=== PATIENT | male | born 1985 | race Caucasian/White ===

== ENCOUNTER 2016-10-16 10:41 | Emergency (ER) | payer MEDICARE, MEDICAID ==
[~2016-10-16 10:41] MED LIST: ALBUTEROL I0.5 ML/EA AERO NEB; ALBUTEROL INHALER; AZITHROMYCIN500 MG PO; BACTRIM 400-801 EAC1 PO; CALCITRATE CAPL1 TAB PO; CARAFATE1 G PO; CAYSTON75 MG/1 ML IH; CEFTIN250 MG PO; COLACE100 M1 PO; COLISTIMETHATE150 MG IV; DEXAMETHASONE2 MG PO; DILTIAZEM 24HR120 M4 PO; FLONASE16 G1; FLONASE16 G2 INH; FLONASE16 GM NS; HI-CAL500 MG PO; IRON325 MG PO; MAGNESIUM400 M1 PO; MAGNESIUM400 M2; MEPHYTON5 MG PO; MEROPENEM IV; MEROPENEM1 GM IV; MERREM IV; MIRALAX17 G1 PO; MIRALAX17 G2 PO; MIRALAX17 GM PO; MUCINEX600 MG PO; MULTIVITAMINS1 EAC6 PO; MYCOPHENOLIC A180 MG PO; NORCO 5/3251 TAB PO; NOVOLIN 70100 UNITS/ SC; NYSTATIN100000 UNI PO; OMEPRAZOLE20 M2 PO; OMNITROPE PO; PANCRELIPASE PO; POTASSIUM20 MEQ/15 PO; PREDNISONE5 M1 PO; PROGRAF PO; PROPRANOLOL HCL20 M1 PO; PROTONIX40 M2 PO; PULMOZYME1 MG/ML AERO NEB; REGLAN10 MG PO; SENNA S TABLET1 TAB PO; SENOKOT8.6 M1 PO; SPIRIVA18 MCG IH; SPORANOX100 M1 PO; SYMBICORT; URSODIOL250 MG PO; URSODIOL300 MG PO; VALCYTE450 MG/TAB PO; VITAMIN A PO; VITAMIN A10000 UNIT PO; VITAMIN D-50000 IU/C PO; VITAMIN D10000 UNIT PO; VITAMIN D31000 UNIT PO; VITAMIN D350000 UNI1 PO; VITAMIN E200 UNIT PO; VITAMIN E400 UNIT PO; VITAMIN K PO; ZANTAC150 MG PO; ZITHROMAX250MG Z-PAK PO; [UNRECOGNIZED DRUG - CODE]; [UNRECOGNIZED DRUG - OTHER] IV; [UNRECOGNIZED DRUG - OTHER] NEB; [UNRECOGNIZED DRUG - OTHER] PO
[2016-10-16 12:35] LABS: BASO % 0.4 % (0-2); EOS % 0.4 % (0-7); HCT-HEMATOCRIT 38.2 % (36.0-53.5); HGB-HEMOGLOBIN 13.7 gm/dl (13.5-17.0); IMMATURE GRANULOCYTES ABSOLUTE 0.01 tho/cmm (0-0.03); IMMATURE GRANULOCYTES PERCENT 0.2 % (0-0.3); LYMPH % 19.8 % (20-45); MCH (MEAN CORPUSCULAR HGB) 29.8 pg (28.0-32.0); MCHC MEAN CORPUSCULAR HGB CONC 35.9 % (32.0-36.0); MEAN PLATELET VOLUME 8.8 cmc (9.4-12.4); MONO % 6.8 % (0-12); MONOCYTE ABSOLUTE COUNT 0.4 tho/cmm (0.0-1.2); NEUTROPHIL ABSOLUTE COUNT 3.7 tho/cmm (1.6-8.0); NEUTROPHIL-AUTOMATED 3.7 tho/cmm (1.6-8.0); NEUTROPHILS % 72.4 % (40-80); RED CELL DISTRIBUTION WIDTH 13.3 % (12.4-16.4); WHITE BLOOD COUNT 5.1 tho/cmm (4.0-10.0)
[2016-10-16 13:00] LABS: ALB/GLOB RATIO 0.8 (0.8-2.0); ALBUMIN 2.7 g/dl (3.5-5.0); ALKALINE PHOSPHATASE 209 U/L (33-138); ANION GAP 15 mmol/L (0-20); BILIRUBIN,TOTAL 2.5 mg/dl (0.0-1.5); BLOOD UREA NITROGEN 12 mg/dl (6-24); C-REACTIVE PROTEIN 3.8 mg/dl (0-0.9); CALCIUM 8.1 mg/dl (8.5-10.5); CARBON DIOXIDE-VENOUS 25 mmol/L (22-32); CHLORIDE 100 mmol/l (96-110); CREATININE 1.45 mg/dl (0.60-1.30); LIPASE 40 U/L (73-393); SODIUM 136 mmol/L (135-145); eGFR VALUE FOR BLACK 73 mL/Min
[2016-10-16 13:01] LABS: GLUCOSE 69 mg/dL (70-110); POTASSIUM 3.9 mmol/L (3.7-5.1)
[2016-10-16 13:10] LABS: ALT/SGPT 1216 U/L (12-78); AST/SGOT 5209 U/L (10-40)
[2016-10-16 13:11] LABS: PLATELET COUNT 45 tho/cmm (150-450)
[2016-10-16] MEDS ORDERED: ZORTRESS PO (13:33)
[2016-10-16] MEDS ORDERED: PROGRAF1 M1 PO ×2 (13:34→13:35)
[2016-10-16] MEDS ORDERED: PREDNISONE5 M1 PO (13:35)
[2016-10-16] MEDS ORDERED: VITAMIN E400 UNI4 PO (13:35)
[2016-10-16] MEDS ORDERED: PROTONIX40 M2 PO (13:36)
[2016-10-16] MEDS ORDERED: MAGNESIUM OXID400 M1 PO (13:36)
[2016-10-16] MEDS ORDERED: VITAMIN A10000 UNI2 PO (13:36)
[2016-10-16] MEDS ORDERED: LABETALOL HCL100 M1 PO (13:37)
[2016-10-16] MEDS ORDERED: VITAMIN D250000 UNI1 PO (13:50)
[2016-10-16] MEDS ORDERED: ASPIR-LOW81 M1 PO (13:59)
[2016-10-16] MEDS ORDERED: NYSTATIN100000 UNI SSW (14:00)
[2016-10-16] MEDS ORDERED: NOVOLIN 70100 UNITS/ SC (14:01)
[2016-10-16] MEDS ORDERED: CREON PO ×2 (14:14→14:15)
[2016-10-16 15:04] LABS: URINE BILIRUBIN SMALL (NEG); URINE BLOOD LARGE (NEG); URINE GLUCOSE (UA) NEGATIVE (NEG); URINE KETONE MODERATE (NEG); URINE LEUKOCYTE ESTERASE POSITIVE (NEG); URINE NITRITE NEGATIVE (NEG); URINE PROTEIN MODERATE (NEG); URINE SPECIFIC GRAVITY 1.015 (1.003-1.030)
[2016-10-16 15:06] LABS: URINE APPEARANCE HAZY; URINE COLOR AMBER
[2016-10-16 15:13] LABS: URINE AMORPHOUS 1+; URINE EPITHELIAL CELLS 0-1 /[HPF] (0-10); URINE MUCUS 1+
[2016-10-16 16:25] LABS: INR 1.9 INR (0.9-1.1); PROTHROMBIN TIME 22.6 SECONDS (9.0-13.6)
== END 2016-10-16 18:26 | disposition other institution (70) ==
LOC: EDMED 10:41
PROVIDERS: Emergency Medicine
DX: E86.0 Dehydration (principal); R11.10 Vomiting, unspecified; E84.9 Cystic fibrosis, unspecified; R79.89 Other specified abnormal findings of blood chemistry; K21.9 Gastro-esophageal reflux disease without esophagitis; Z94.2 Lung transplant status; Z94.4 Liver transplant status; E11.9 Type 2 diabetes mellitus without complications; Z79.4 Long term (current) use of insulin; Z79.899 Other long term (current) drug therapy
CPT/HCPCS: C9113; J2405; J2765; J7030

== ENCOUNTER 2016-11-12 18:55 | Inpatient (IN) | payer MEDICARE, MEDICAID ==
[~2016-11-12 18:55] MED LIST changes: +ASPIR-LOW81 M1 PO; +CREON PO; +LABETALOL HCL100 M1 PO; +MAGNESIUM OXID400 M1 PO; +NYSTATIN100000 UNI SSW; +PROGRAF1 M1 PO; +VITAMIN A10000 UNI2 PO; +VITAMIN D250000 UNI1 PO; +VITAMIN E400 UNI4 PO; +ZORTRESS PO
[2016-11-12 20:48] LABS: BASO % 0.5 % (0-2); EOS % 1.3 % (0-7); EOSINOPHIL ABSOLUTE COUNT 0.1 tho/cmm (0.0-0.7); HCT-HEMATOCRIT 34.9 % (36.0-53.5); HGB-HEMOGLOBIN 12.2 gm/dl (13.5-17.0); MCH (MEAN CORPUSCULAR HGB) 29.3 pg (28.0-32.0); MCV (MEAN CELL VOLUME) 83.7 fl (82.0-96.0); MEAN PLATELET VOLUME 8.1 cmc (9.4-12.4); MONO % 11.7 % (0-12); MONOCYTE ABSOLUTE COUNT 0.7 tho/cmm (0.0-1.2); NEUTROPHIL ABSOLUTE COUNT 3.8 tho/cmm (1.6-8.0); NEUTROPHIL-AUTOMATED 3.8 tho/cmm (1.6-8.0); NEUTROPHILS % 68.5 % (40-80); RED BLOOD COUNT 4.17 mil/cmm (4.40-5.70); RED CELL DISTRIBUTION WIDTH 13.3 % (12.4-16.4); WHITE BLOOD COUNT 5.6 tho/cmm (4.0-10.0)
[2016-11-12 20:51] LABS: PLATELET COUNT 47 tho/cmm (150-450)
[2016-11-12 21:09] LABS: ALB/GLOB RATIO 0.9 (0.8-2.0); ALBUMIN 2.7 g/dl (3.5-5.0); ALKALINE PHOSPHATASE 253 U/L (33-138); ALT/SGPT 43 U/L (12-78); ANION GAP 14 mmol/L (0-20); AST/SGOT 52 U/L (10-40); BILIRUBIN,DIRECT 0.5 mg/dl (0.0-0.3); BILIRUBIN,INDIRECT 0.8 mg/dL (0.0-1.0); BILIRUBIN,TOTAL 1.3 mg/dl (0.0-1.5); BLOOD UREA NITROGEN 2 mg/dl (6-24); CALCIUM 7.5 mg/dl (8.5-10.5); CARBON DIOXIDE-VENOUS 26 mmol/L (22-32); CHLORIDE 101 mmol/l (96-110); CREATININE 0.91 mg/dl (0.60-1.30); GLUCOSE 76 mg/dL (70-110); LIPASE 29 U/L (73-393); POTASSIUM 3.4 mmol/L (3.7-5.1); SODIUM 138 mmol/L (135-145); eGFR VALUE FOR BLACK >90 mL/Min
[2016-11-12 21:14] LABS: URINE BILIRUBIN NEGATIVE (NEG); URINE BLOOD NEGATIVE (NEG); URINE GLUCOSE (UA) NEGATIVE (NEG); URINE KETONE SMALL (NEG); URINE LEUKOCYTE ESTERASE POSITIVE (NEG); URINE NITRITE NEGATIVE (NEG); URINE PROTEIN SMALL (NEG); URINE SPECIFIC GRAVITY 1.005 (1.003-1.030)
[2016-11-12 21:17] LABS: URINE APPEARANCE HAZY; URINE COLOR YELLOW
[2016-11-12 21:23] LABS: URINE AMORPHOUS 1+; URINE RBC RARE /[HPF] (0-5); URINE WBC 0 /[HPF] (0-5)
[2016-11-12] MEDS ORDERED: ZOFRAN ODT4 MG PO (22:28)
[2016-11-13 05:25] LABS: BASO % 0.6 % (0-2); EOS % 1.5 % (0-7); EOSINOPHIL ABSOLUTE COUNT 0.1 tho/cmm (0.0-0.7); HCT-HEMATOCRIT 31.3 % (36.0-53.5); HGB-HEMOGLOBIN 10.6 gm/dl (13.5-17.0); LYMPH % 26.1 % (20-45); LYMPH ABSOLUTE COUNT 0.9 tho/cmm (0.8-4.5); MCH (MEAN CORPUSCULAR HGB) 28.8 pg (28.0-32.0); MCHC MEAN CORPUSCULAR HGB CONC 33.9 % (32.0-36.0); MCV (MEAN CELL VOLUME) 85.1 fl (82.0-96.0); MEAN PLATELET VOLUME 8.6 cmc (9.4-12.4); MONO % 13.9 % (0-12); MONOCYTE ABSOLUTE COUNT 0.5 tho/cmm (0.0-1.2); NEUTROPHILS % 57.9 % (40-80); RED BLOOD COUNT 3.68 mil/cmm (4.40-5.70); RED CELL DISTRIBUTION WIDTH 13.6 % (12.4-16.4); WHITE BLOOD COUNT 3.4 tho/cmm (4.0-10.0)
[2016-11-13 05:33] LABS: PLATELET COUNT 40 tho/cmm (150-450)
[2016-11-13 05:39] LABS: ANION GAP 12 mmol/L (0-20); BLOOD UREA NITROGEN 2 mg/dl (6-24); CALCIUM 6.8 mg/dl (8.5-10.5); CARBON DIOXIDE-VENOUS 24 mmol/L (22-32); CHLORIDE 105 mmol/l (96-110); CREATININE 0.92 mg/dl (0.60-1.30); POTASSIUM 3.2 mmol/L (3.7-5.1); SODIUM 138 mmol/L (135-145); eGFR VALUE FOR BLACK >90 mL/Min
[2016-11-13 05:44] LABS: GLUCOSE 68 mg/dL (70-110)
--- NOTE | 2016-11-13 16:02 | NUR ---
DR MATHIAS NOTIFIED OF CONTINUED NAUSEA AND HYPOGLYCEMIA, ORDERS RECIEVED
[2016-11-14 04:38] LABS: BASO % 0.4 % (0-2); EOS % 0.4 % (0-7); HCT-HEMATOCRIT 32.4 % (36.0-53.5); HGB-HEMOGLOBIN 11.1 gm/dl (13.5-17.0); LYMPH % 31.9 % (20-45); LYMPH ABSOLUTE COUNT 0.8 tho/cmm (0.8-4.5); MCHC MEAN CORPUSCULAR HGB CONC 34.3 % (32.0-36.0); MCV (MEAN CELL VOLUME) 84.6 fl (82.0-96.0); MEAN PLATELET VOLUME 8.6 cmc (9.4-12.4); MONO % 9.1 % (0-12); MONOCYTE ABSOLUTE COUNT 0.2 tho/cmm (0.0-1.2); NEUTROPHIL ABSOLUTE COUNT 1.5 tho/cmm (1.6-8.0); NEUTROPHIL-AUTOMATED 1.5 tho/cmm (1.6-8.0); NEUTROPHILS % 58.2 % (40-80); RED BLOOD COUNT 3.83 mil/cmm (4.40-5.70); RED CELL DISTRIBUTION WIDTH 13.4 % (12.4-16.4); WHITE BLOOD COUNT 2.6 tho/cmm (4.0-10.0)
[2016-11-14 04:59] LABS: ALB/GLOB RATIO 0.8 (0.8-2.0); ALBUMIN 2.4 g/dl (3.5-5.0); ALKALINE PHOSPHATASE 197 U/L (33-138); ALT/SGPT 35 U/L (12-78); ANION GAP 12 mmol/L (0-20); AST/SGOT 45 U/L (10-40); BILIRUBIN,TOTAL 1.1 mg/dl (0.0-1.5); BLOOD UREA NITROGEN 2 mg/dl (6-24); CALCIUM 7.6 mg/dl (8.5-10.5); CARBON DIOXIDE-VENOUS 25 mmol/L (22-32); CHLORIDE 108 mmol/l (96-110); CREATININE 1.07 mg/dl (0.60-1.30); MAGNESIUM 1.6 mg/dl (1.8-2.6); POTASSIUM 3.9 mmol/L (3.7-5.1); SODIUM 141 mmol/L (135-145); eGFR VALUE FOR BLACK >90 mL/Min
[2016-11-14 05:03] LABS: GLUCOSE 150 mg/dL (70-110)
[2016-11-14 05:06] LABS: PLATELET COUNT 47 tho/cmm (150-450)
[2016-11-14] MEDS ORDERED: SENNA8.6 M2 PO (12:36)
[2016-11-14] MEDS ORDERED: COLACE100 M1 PO (12:36)
[2016-11-14] MEDS ORDERED: MIRALAX17 G2 PO (12:37)
[2016-11-15 04:23] LABS: EOS % 0.5 % (0-7); HCT-HEMATOCRIT 29.4 % (36.0-53.5); HGB-HEMOGLOBIN 10.1 gm/dl (13.5-17.0); LYMPH % 25.8 % (20-45); LYMPH ABSOLUTE COUNT 0.6 tho/cmm (0.8-4.5); MCH (MEAN CORPUSCULAR HGB) 29.1 pg (28.0-32.0); MCHC MEAN CORPUSCULAR HGB CONC 34.4 % (32.0-36.0); MCV (MEAN CELL VOLUME) 84.7 fl (82.0-96.0); MEAN PLATELET VOLUME 8.9 cmc (9.4-12.4); MONO % 6.3 % (0-12); MONOCYTE ABSOLUTE COUNT 0.1 tho/cmm (0.0-1.2); NEUTROPHIL ABSOLUTE COUNT 1.5 tho/cmm (1.6-8.0); NEUTROPHIL-AUTOMATED 1.5 tho/cmm (1.6-8.0); NEUTROPHILS % 67.4 % (40-80); RED BLOOD COUNT 3.47 mil/cmm (4.40-5.70); RED CELL DISTRIBUTION WIDTH 13.2 % (12.4-16.4); WHITE BLOOD COUNT 2.2 tho/cmm (4.0-10.0)
[2016-11-15 04:35] LABS: PLATELET COUNT 46 tho/cmm (150-450)
[2016-11-15 04:40] LABS: ALB/GLOB RATIO 0.8 (0.8-2.0); ALBUMIN 2.2 g/dl (3.5-5.0); ALKALINE PHOSPHATASE 166 U/L (33-138); ALT/SGPT 33 U/L (12-78); ANION GAP 11 mmol/L (0-20); AST/SGOT 46 U/L (10-40); BILIRUBIN,TOTAL 0.8 mg/dl (0.0-1.5); BLOOD UREA NITROGEN 5 mg/dl (6-24); CALCIUM 7.3 mg/dl (8.5-10.5); CARBON DIOXIDE-VENOUS 27 mmol/L (22-32); CHLORIDE 107 mmol/l (96-110); CREATININE 1.13 mg/dl (0.60-1.30); GLUCOSE 186 mg/dL (70-110); POTASSIUM 4.1 mmol/L (3.7-5.1); SODIUM 141 mmol/L (135-145); eGFR VALUE FOR BLACK >90 mL/Min
== END 2016-11-15 12:00 | DRG 392 ==
LOC: EDMED 18:55 → EMR2 23:34 → 5WE 11-13 00:23
PROVIDERS: Emergency Medicine; Family Medicine; Internal Medicine; ADMIT Hospitalist
DX: K52.9 Noninfective gastroenteritis and colitis, unspecified (principal); D61.818 Other pancytopenia; Z94.4 Liver transplant status; Z94.2 Lung transplant status; E44.0 Moderate protein-calorie malnutrition; K86.89 Other specified diseases of pancreas; E83.42 Hypomagnesemia; Z79.899 Other long term (current) drug therapy; Z87.898 Personal history of other specified conditions; Z79.82 Long term (current) use of aspirin; K21.9 Gastro-esophageal reflux disease without esophagitis; E86.0 Dehydration; Z88.8 Allergy status to other drugs, medicaments and biological substances; E87.6 Hypokalemia; E16.2 Hypoglycemia, unspecified; D63.8 Anemia in other chronic diseases classified elsewhere; R79.89 Other specified abnormal findings of blood chemistry; L40.9 Psoriasis, unspecified
CPT/HCPCS: J2405; J2550; J3480; J7030; J7507; J7512

== ENCOUNTER 2016-12-08 09:41 | Inpatient (IN) | payer MEDICARE, MEDICAID ==
[~2016-12-08 09:41] MED LIST changes: +SENNA8.6 M2 PO; +ZOFRAN ODT4 MG PO
[2016-12-08 11:17] LABS: BASO % 0.9 % (0-2); EOS % 2.7 % (0-7); EOSINOPHIL ABSOLUTE COUNT 0.1 tho/cmm (0.0-0.7); HGB-HEMOGLOBIN 12.2 gm/dl (13.5-17.0); IMMATURE GRANULOCYTES ABSOLUTE 0.01 tho/cmm (0-0.03); IMMATURE GRANULOCYTES PERCENT 0.3 % (0-0.3); LYMPH % 26.2 % (20-45); LYMPH ABSOLUTE COUNT 0.9 tho/cmm (0.8-4.5); MCH (MEAN CORPUSCULAR HGB) 29.2 pg (28.0-32.0); MCHC MEAN CORPUSCULAR HGB CONC 34.9 % (32.0-36.0); MCV (MEAN CELL VOLUME) 83.7 fl (82.0-96.0); MEAN PLATELET VOLUME 8.5 cmc (9.4-12.4); MONO % 11.3 % (0-12); MONOCYTE ABSOLUTE COUNT 0.4 tho/cmm (0.0-1.2); NEUTROPHIL ABSOLUTE COUNT 1.9 tho/cmm (1.6-8.0); NEUTROPHIL-AUTOMATED 1.9 tho/cmm (1.6-8.0); NEUTROPHILS % 58.6 % (40-80); RED BLOOD COUNT 4.18 mil/cmm (4.40-5.70); RED CELL DISTRIBUTION WIDTH 13.3 % (12.4-16.4); WHITE BLOOD COUNT 3.3 tho/cmm (4.0-10.0)
[2016-12-08 11:31] LABS: ALB/GLOB RATIO 0.7 (0.8-2.0); ALBUMIN 2.3 g/dl (3.5-5.0); ALKALINE PHOSPHATASE 184 U/L (33-138); ALT/SGPT 36 U/L (12-78); ANION GAP 13 mmol/L (0-20); AST/SGOT 48 U/L (10-40); BILIRUBIN,TOTAL 1.6 mg/dl (0.0-1.5); BLOOD UREA NITROGEN 6 mg/dl (6-24); CALCIUM 7.9 mg/dl (8.5-10.5); CARBON DIOXIDE-VENOUS 27 mmol/L (22-32); CHLORIDE 101 mmol/l (96-110); GLUCOSE 72 mg/dL (70-110); LIPASE 28 U/L (73-393); POTASSIUM 3.2 mmol/L (3.7-5.1); SODIUM 138 mmol/L (135-145); eGFR VALUE FOR BLACK >90 mL/Min
[2016-12-08 12:31] LABS: PLATELET COUNT 52 tho/cmm (150-450)
[2016-12-08 12:32] LABS: URINE BILIRUBIN NEGATIVE (NEG); URINE BLOOD NEGATIVE (NEG); URINE GLUCOSE (UA) NEGATIVE (NEG); URINE KETONE MODERATE (NEG); URINE LEUKOCYTE ESTERASE NEGATIVE (NEG); URINE NITRITE NEGATIVE (NEG); URINE PROTEIN NEGATIVE (NEG)
[2016-12-08 12:33] LABS: URINE APPEARANCE CLEAR
[2016-12-08 12:34] LABS: URINE COLOR DARK YELLOW
[2016-12-09 04:17] LABS: BASO % 0.6 % (0-2); EOS % 0.9 % (0-7); HCT-HEMATOCRIT 30.3 % (36.0-53.5); HGB-HEMOGLOBIN 10.4 gm/dl (13.5-17.0); LYMPH ABSOLUTE COUNT 0.7 tho/cmm (0.8-4.5); MCH (MEAN CORPUSCULAR HGB) 29.1 pg (28.0-32.0); MCHC MEAN CORPUSCULAR HGB CONC 34.3 % (32.0-36.0); MCV (MEAN CELL VOLUME) 84.9 fl (82.0-96.0); MEAN PLATELET VOLUME 8.7 cmc (9.4-12.4); MONO % 6.6 % (0-12); MONOCYTE ABSOLUTE COUNT 0.2 tho/cmm (0.0-1.2); NEUTROPHIL ABSOLUTE COUNT 2.4 tho/cmm (1.6-8.0); NEUTROPHIL-AUTOMATED 2.4 tho/cmm (1.6-8.0); NEUTROPHILS % 70.9 % (40-80); RED BLOOD COUNT 3.57 mil/cmm (4.40-5.70); RED CELL DISTRIBUTION WIDTH 13.3 % (12.4-16.4); WHITE BLOOD COUNT 3.3 tho/cmm (4.0-10.0)
[2016-12-09 04:32] LABS: ALB/GLOB RATIO 0.7 (0.8-2.0); ALBUMIN 1.9 g/dl (3.5-5.0); ALKALINE PHOSPHATASE 135 U/L (33-138); ALT/SGPT 27 U/L (12-78); ANION GAP 17 mmol/L (0-20); AST/SGOT 44 U/L (10-40); BILIRUBIN,DIRECT 0.3 mg/dl (0.0-0.3); BILIRUBIN,INDIRECT 0.6 mg/dL (0.0-1.0); BILIRUBIN,TOTAL 0.9 mg/dl (0.0-1.5); BLOOD UREA NITROGEN 4 mg/dl (6-24); CARBON DIOXIDE-VENOUS 18 mmol/L (22-32); CHLORIDE 112 mmol/l (96-110); CREATININE 0.85 mg/dl (0.60-1.30); MAGNESIUM 1.5 mg/dl (1.8-2.6); POTASSIUM 3.4 mmol/L (3.7-5.1); SODIUM 144 mmol/L (135-145); eGFR VALUE FOR BLACK >90 mL/Min
[2016-12-09 05:08] LABS: PLATELET COUNT 45 tho/cmm (150-450)
[2016-12-09 05:16] LABS: CALCIUM 6.5 mg/dl (8.5-10.5); GLUCOSE 50 mg/dL (70-110)
[2016-12-10 05:25] LABS: BASO % 0.4 % (0-2); EOS % 0.4 % (0-7); HCT-HEMATOCRIT 29.7 % (36.0-53.5); HGB-HEMOGLOBIN 10.1 gm/dl (13.5-17.0); INR 1.1 INR (0.9-1.1); LYMPH % 25.9 % (20-45); LYMPH ABSOLUTE COUNT 0.7 tho/cmm (0.8-4.5); MCH (MEAN CORPUSCULAR HGB) 28.9 pg (28.0-32.0); MCV (MEAN CELL VOLUME) 84.9 fl (82.0-96.0); MEAN PLATELET VOLUME 8.8 cmc (9.4-12.4); MONOCYTE ABSOLUTE COUNT 0.2 tho/cmm (0.0-1.2); NEUTROPHIL ABSOLUTE COUNT 1.6 tho/cmm (1.6-8.0); NEUTROPHIL-AUTOMATED 1.6 tho/cmm (1.6-8.0); NEUTROPHILS % 64.3 % (40-80); PROTHROMBIN TIME 12.5 SECONDS (9.0-13.6); RED CELL DISTRIBUTION WIDTH 13.1 % (12.4-16.4); WHITE BLOOD COUNT 2.6 tho/cmm (4.0-10.0)
[2016-12-10 05:30] LABS: ALB/GLOB RATIO 0.8 (0.8-2.0); ALBUMIN 2.1 g/dl (3.5-5.0); ALKALINE PHOSPHATASE 146 U/L (33-138); ALT/SGPT 27 U/L (12-78); AST/SGOT 33 U/L (10-40); BILIRUBIN,DIRECT 0.2 mg/dl (0.0-0.3); BILIRUBIN,INDIRECT 0.3 mg/dL (0.0-1.0); BILIRUBIN,TOTAL 0.5 mg/dl (0.0-1.5); BLOOD UREA NITROGEN 4 mg/dl (6-24); CALCIUM 7.3 mg/dl (8.5-10.5); CARBON DIOXIDE-VENOUS 24 mmol/L (22-32); CHLORIDE 112 mmol/l (96-110); CREATININE 0.97 mg/dl (0.60-1.30); MAGNESIUM 1.7 mg/dl (1.8-2.6); SODIUM 143 mmol/L (135-145); eGFR VALUE FOR BLACK >90 mL/Min
[2016-12-10 05:35] LABS: PLATELET COUNT 50 tho/cmm (150-450)
[2016-12-10 05:41] LABS: ANION GAP 11 mmol/L (0-20); GLUCOSE 109 mg/dL (70-110); POTASSIUM 4.3 mmol/L (3.7-5.1)
[2016-12-11 04:28] LABS: EOS % 0.9 % (0-7); HCT-HEMATOCRIT 26.9 % (36.0-53.5); IMMATURE GRANULOCYTES ABSOLUTE 0.01 tho/cmm (0-0.03); IMMATURE GRANULOCYTES PERCENT 0.5 % (0-0.3); LYMPH % 24.9 % (20-45); LYMPH ABSOLUTE COUNT 0.5 tho/cmm (0.8-4.5); MCH (MEAN CORPUSCULAR HGB) 28.8 pg (28.0-32.0); MCHC MEAN CORPUSCULAR HGB CONC 33.5 % (32.0-36.0); MCV (MEAN CELL VOLUME) 86.2 fl (82.0-96.0); MEAN PLATELET VOLUME 9.2 cmc (9.4-12.4); MONO % 5.1 % (0-12); MONOCYTE ABSOLUTE COUNT 0.1 tho/cmm (0.0-1.2); NEUTROPHIL ABSOLUTE COUNT 1.5 tho/cmm (1.6-8.0); NEUTROPHIL-AUTOMATED 1.5 tho/cmm (1.6-8.0); NEUTROPHILS % 68.6 % (40-80); RED BLOOD COUNT 3.12 mil/cmm (4.40-5.70); RED CELL DISTRIBUTION WIDTH 13.2 % (12.4-16.4); WHITE BLOOD COUNT 2.2 tho/cmm (4.0-10.0)
[2016-12-11 04:42] LABS: ALB/GLOB RATIO 0.7 (0.8-2.0); ALBUMIN 1.9 g/dl (3.5-5.0); ALKALINE PHOSPHATASE 125 U/L (33-138); ALT/SGPT 25 U/L (12-78); ANION GAP 10 mmol/L (0-20); AST/SGOT 30 U/L (10-40); BILIRUBIN,DIRECT 0.2 mg/dl (0.0-0.3); BILIRUBIN,INDIRECT 0.2 mg/dL (0.0-1.0); BILIRUBIN,TOTAL 0.4 mg/dl (0.0-1.5); BLOOD UREA NITROGEN 7 mg/dl (6-24); CARBON DIOXIDE-VENOUS 25 mmol/L (22-32); CHLORIDE 111 mmol/l (96-110); CREATININE 0.92 mg/dl (0.60-1.30); GLUCOSE 114 mg/dL (70-110); POTASSIUM 4.2 mmol/L (3.7-5.1); SODIUM 142 mmol/L (135-145); eGFR VALUE FOR BLACK >90 mL/Min
[2016-12-11 04:49] LABS: PLATELET COUNT 45 tho/cmm (150-450)
== END 2016-12-12 11:30 | DRG 392 ==
LOC: EDMED 09:41 → EMR2 17:15 → CAR1 21:24
PROVIDERS: Emergency Medicine; Internal Medicine; Internal Medicine Gastroenterology; Nurse Practitioner; ADMIT Hospitalist
PROC: 0DB98ZX Excision of Duodenum, Via Natural or Artificial Opening Endoscopic, Diagnostic (ICD-10-PCS; principal; 2016-12-10)
PROC: 0DB68ZX Excision of Stomach, Via Natural or Artificial Opening Endoscopic, Diagnostic (ICD-10-PCS; 2016-12-10)
DX: K29.50 Unspecified chronic gastritis without bleeding (principal); D61.818 Other pancytopenia; T86.49 Other complications of liver transplant; Z94.2 Lung transplant status; E44.0 Moderate protein-calorie malnutrition; Z94.4 Liver transplant status; I85.00 Esophageal varices without bleeding; K76.6 Portal hypertension; D62 Acute posthemorrhagic anemia; K86.1 Other chronic pancreatitis; K92.1 Melena; K25.9 Gastric ulcer, unspecified as acute or chronic, without hemorrhage or perforation; K31.89 Other diseases of stomach and duodenum; R13.10 Dysphagia, unspecified; K74.60 Unspecified cirrhosis of liver; K86.89 Other specified diseases of pancreas; D69.6 Thrombocytopenia, unspecified; K21.9 Gastro-esophageal reflux disease without esophagitis; L40.9 Psoriasis, unspecified; Z88.1 Allergy status to other antibiotic agents; Z79.52 Long term (current) use of systemic steroids; Z79.899 Other long term (current) drug therapy; D72.819 Decreased white blood cell count, unspecified; E80.7 Disorder of bilirubin metabolism, unspecified; E87.6 Hypokalemia; J45.909 Unspecified asthma, uncomplicated; Z79.82 Long term (current) use of aspirin; R73.9 Hyperglycemia, unspecified
CPT/HCPCS: A9541; C9113; G0378; J0610; J2405; J3475; J3480; J7030; J7507; J7512; Q9967